=== PATIENT | male | born 1965 | race Caucasian/White ===

== ENCOUNTER → 2016-10-16 | Outpatient (CLI) | payer BC ==
--- NOTE | 2016-10-16 14:49 | DIAGNOSTIC IMAGING REPORT ---
RIGHT KNEE 4 VIEWS CLINICAL HISTORY: Right knee pain. FINDINGS: AP, crosstable lateral, tunnel, and sunrise views of the right knee are compared to study dated 08/15/2016. The skeletal structures are well mineralized. No fracture is seen. There are postoperative changes consistent with previous ACL repair. Mild degenerative narrowing is seen at the patellofemoral articulation. The medial and lateral compartments appear maintained. There are tiny patellar enthesophytes. No evidence of osteochondral lesion is seen on the tunnel view. There is no joint effusion. Mild prepatellar soft tissue swelling is noted. IMPRESSION: 1. Mild prepatellar soft tissue swelling with no acute bony abdominal identified. 2. There are postoperative changes consistent with previous ACL repair. Electronically signed by: Chris Salgado M.D. 10/16/2016 2:48 PM Dictated Date/Time: 10/16/2016 2:42 PM
== END | disposition home or self-care (01) ==
LOC: C.RDSM 14:28
PROVIDERS: ATTEND Physical Medicine & Rehabilitation Sports Medicine
DX: R52 Pain, unspecified (principal)